=== PATIENT | male | born 2000 | race Caucasian/White ===

== ENCOUNTER 2020-01-19 13:57 | Emergency (ER) | payer BC ==
[~2020-01-19] VITALS: Ht 188 cm; Wt 77.1 kg
[2020-01-19 14:13] VITALS: TEMP 97.9
[2020-01-19] MEDS ORDERED: LEXAPRO 5MG5 MG PO (14:21)
[2020-01-19] MEDS ORDERED: XANAX XR0.5 MG PO (14:22)
[2020-01-19 16:15] VITALS: BP 112/66; PULSE 96
== END 2020-01-19 16:15 | disposition home or self-care (01) ==
LOC: COL.ER 13:57
DX: F41.0 Panic disorder [episodic paroxysmal anxiety] (principal)